=== PATIENT | male | born 1965 | race Caucasian/White ===

== ENCOUNTER 2017-07-25 18:05 | Emergency (ER) | payer BC ==
[~2017-07-25] VITALS: Ht 172.7 cm; Wt 70.3 kg
[2017-07-25] MEDS ORDERED: AZITHROMYCIN 250 MG TABLET (18:13)
[2017-07-25] MEDS ORDERED: SIMVASTATIN 20 MG TABLET (18:13)
[2017-07-25] MEDS ORDERED: BENAZEPRIL HCL 20 MG TABLET (18:13)
[2017-07-25] MEDS ORDERED: AMLODIPINE BESYLATE 5 MG TAB (18:13)
[2017-07-25] MEDS ORDERED: QVAR 40 MCG (18:13)
[2017-07-25] MEDS ORDERED: LANSOPRAZOLE 30 MG (18:13)
--- NOTE | 2017-07-25 18:42 | NUR ---
MD is at bedside evaluating patient.
[2017-07-25] MEDS ORDERED: IV NORMAL SALINE 1000 ML BAG IV ONE (18:45)
--- NOTE | 2017-07-25 19:12 | NUR ---
pending diagnostic tests results, endorsed to 7pm nurse Brenda accordingly
--- NOTE | 2017-07-25 19:15 | NUR ---
Recieved report, assumed care of pt at this time. Pt resting in position of comfort for self. No complaints at this time. NSR on monitor. Denies dizziness, denies light-headedness. Fluid bolus completed. Lab results pending. Family at bedside.
[2017-07-25 19:16] LABS: BILIRUBIN,DIRECT 0.1 mg/dL (0.0-0.2); BILIRUBIN,TOTAL 0.3 mg/dL (0.2-1.0); CREATININE 1.3 mg/dL (0.6-1.3); POTASSIUM 4.4 mmol/L (3.5-5.1); TOTAL PROTEIN, SERUM 7.3 g/dL (6.4-8.2)
[2017-07-25 19:21] LABS: *BILIRUBIN,URIN NEGATIVE (NEGATIVE); *BLOOD, URINE NEGATIVE (NEGATIVE); *CLARITY,URINE CLEAR (CLEAR); *COLOR,URINE YELLOW (YELLOW); *KETONES,URINE NEGATIVE (NEGATIVE); *PROTEIN,URINE 1+ (NEGATIVE); *UROBILINOGEN,URINE 0.2 E.U./dl (NORMAL); LEUKOCYTE ESTERASE ,URINE NEGATIVE (NEGATIVE); NITRITE, URINE NEGATIVE (NEGATIVE); PH,URINE 5.5 (5.0-8.0); UGLUCOSE NEGATIVE (NEGATIVE)
[2017-07-25 19:36] LABS: BACTERIA,URINE NONE SEEN /HPF (NONE SEEN); RBC,URINE 0-3 /HPF (0-3); SQUAMOUS EPITHELIAL CELL,UR FEW /HPF (NONE SEEN)
[2017-07-25 21:12] LABS: HEMATOCRIT 39.8 % (40-50); HEMOGLOBIN 13.7 G/DL (14.0-18.0); LYMPHOCYTES % (AUTO) 22.1 % (20.5-51.5); MEAN CORPUSCULAR HEMOGLOBIN 29.2 UUG (27.0-31.0); MEAN CORPUSCULAR HGB CONC 34 g/dL (32.0-37.0); MEAN CORPUSCULAR VOLUME 84.9 FL (82.0-92.0); NEUTROPHILS % (AUTO) 61.5 % (38.5-71.5); PLATELET COUNT (AUTO) 274 K/UL (150-450); RED BLOOD CELL COUNT(AUTO) 4.69 MIL/UL (4.7-6.1)
[2017-07-25 21:13] LABS: BASOPHILS % (AUTO) 0.4 % (0.0-2.0); EOSINOPHILS # (AUTO) 0.4 K/uL (0.0-0.7); EOSINOPHILS % (AUTO) 6.3 % (0.0-7.0); LYMPHOCYTES # (AUTO) 1.5 K/UL (0.8-4.8); MONOCYTES # (AUTO) 0.7 K/UL (0.1-1.30); MONOCYTES % (AUTO) 9.7 % (0.0-11.0); NEUTROPHILS # (AUTO) 4.3 K/UL (1.8-8.9)
--- NOTE | 2017-07-25 21:18 | NUR ---
IV removed. Catheter intact and site benign. Pressure and 4x4 gauze applied to site. No bleeding noted.
[2017-07-25 21:22] VITALS: BP 114/79
--- NOTE | 2017-07-25 21:23 | NUR ---
Patient discharged to home in stable conditon with family taking patient home.. Written and verbal after care instructions given. Patient verbalizes understanding of instructions. Walked out of ER with no distress noted
== END 2017-07-25 21:24 | disposition home or self-care (01) ==
LOC: ER 18:10
DX: R55 Syncope and collapse (principal); J45.909 Unspecified asthma, uncomplicated; I10 Essential (primary) hypertension; E78.5 Hyperlipidemia, unspecified
CPT/HCPCS: 36415; 71010; 80048; 80076; 81001; 84484; 85025; 93005; 99285; A4663; 70030-TC; J7030